=== PATIENT | male | born 1930 | race Caucasian/White ===

== ENCOUNTER 2016-09-04 10:10 | Inpatient (IN) | payer OTHER ==
[~2016-09-04] VITALS: Ht 177.8 cm; Wt 75.0 kg
[~2016-09-04 10:10] MED LIST: AMLO5TAB2 PO; HYT/2 PO; METO25TA3 PO; OMEP20CA59 PO; TAMS0.4C38 PO; VENL150T33 PO; WARF2.5T8 PO; WARF5TAB90 PO
[2016-09-04] MEDS ORDERED: SODIUM CHLORIDE 0.9% 1000ML 1,000 ML IV ONE (10:28)
--- NOTE | 2016-09-04 10:46 | EMERGENCY ROOM VISIT NOTE ---
History Report prepared by Kiranibdre: Radha Disla Under the Supervision of: Dr. Ernie Green D.O. First contact with patient: 10:21 Chief Complaint: URINARY SYMPTOMS Stated Complaint: UTI,CLAMMY,SHALLOW BREATHING,WEAKNESS History of Present Illness The patient is a 85 year old male who presents to the Emergency Room with complaints of persistent urinary symptoms starting 3 days ago. A catheter was placed after he had a stroke in June. 2 days ago, his catheter was taken out. Since then, he has been having urinary retention, urinary incontinence, and pain with urination. His urine was cloudy and orange colored this morning. He had a urine culture when the catheter was taken out which showed infection. He was referred to the Emergency Room today by his urologist for concerns about the infection. As per [id number], the patient has had chills, shallow breathing, increased sleepiness, and weakness. 2 days ago, the patient could ambulate as normal and was coherent. Today, the patient is coherent but he is struggling to talk and ambulate. He denies fevers, headache, chest pain, shortness of breath, back pain, lower extremity pain/swelling, or any other complaints. He has a history of enlarged prostate. He denies any changes in medications or any new medications. The patient is no longer on Coumadin. He is on 81 mg Aspirin. Source of History: patient, family ([id number]) Onset: 3 days ago Position: other (global) Quality: other (urinary symptoms) Timing: other (persistent) Associated Symptoms: + chills, No SOB, No back pain, No chest pain, No fevers, No headache Review of Systems See HPI for pertinent positives & negatives. A total of 10 systems reviewed and were otherwise negative. Past Medical & Surgical Medical Problems: (1) Diabetes mellitus type II, controlled (2) Diastolic CHF (3) Dyslipidemia (4) History of CVA (cerebrovascular accident) (5) HTN (hypertension) (6) Hypothyroidism (7) Kidney stones (8) UTI (urinary tract infection) Surgical Problems: (1) History of cholecystectomy Family History Gallbladder disease Heart disease Hypertension Kidney stones Social History Smoking Status: Former Smoker Alcohol Use: occasionally Marital Status: single Housing Status: lives alone Occupation Status: retired Current/Historical Medications Scheduled Allopurinol (Zyloprim), 300 MG PO DAILY Aspirin (Aspirin Ec), 81 MG PO DAILY Docusate Sodium (Colace), 1 CAP PO BID Fish Oil ([place]-3), 1 CAP PO DAILY Glucosamine Sulfate (Glucosamine), 1 TAB PO DAILY Labetalol Hcl (Normodyne), 50 MG PO TID Levothyroxine Sodium (Synthroid), 112 MCG PO DAILY Lisinopril (Lisinopril), 10 MG PO DAILY Magnesium Oxide (Mag-Ox), 400 MG PO DAILY Ocuvite Preservision (Ocuvite Preservision), 1 TAB PO DAILY Omeprazole (Prilosec), 20 MG PO DAILY Potassium Chloride (Micro-K Ext Rel), 10 MEQ PO DAILY Pravastatin Sod (Pravastatin Sodium), 40 MG PO QPM Senna/Docusate Sod (Senokot S), 1 TAB PO DAILY Tamsulosin Hcl (Flomax), 0.4 MG PO HS Venlafaxine Hcl (Effexor Xr), 1 CAP PO HS Scheduled PRN Acetaminophen (Tylenol), 650 MG PO Q4 PRN for Mild Pain Lorazepam (Ativan), 0.5 MG PO HS PRN for Sleep Allergies Coded Allergies: Tetracycline (Verified Allergy, Intermediate, Rash, 09/04/16) Clonidine (Verified Adverse Reaction, Intermediate, profound hypotension, 09/04/16) Simvastatin (Verified Adverse Reaction, Intermediate, Leg Pains, 09/04/16) Physical Exam Vital Signs Date Time Temp Pulse Resp B/P Pulse Ox O2 Delivery O2 Flow Rate FiO2 09/04/16 12:30 63 22 107/74 94 Nasal Cannula 2.0 09/04/16 10:48 96 Nasal Cannula 2.0 09/04/16 10:44 91 Room Air 09/04/16 10:44 17 92 Nasal Cannula 2.0 09/04/16 10:17 37.0 103 20 123/74 95 Room Air Physical Exam GENERAL: Patient is awake, alert, and in no acute distress. Patient is resting comfortably and showing no signs of anxiety EYES: The conjunctivae are clear. Pupils are constricted bilaterally and minimally reactive to light. EARS, NOSE, MOUTH AND THROAT: The nose is without any evidence of any deformity. Mucous membranes are dry tongue is midline NECK: The neck is nontender and supple. RESPIRATORY: Normal respiratory effort is noted there is no evidence of wheezing rhonchi or rales CARDIOVASCULAR: Regular rate and rhythm noted there no murmurs rubs or gallops normal S1 normal S2 GASTROINTESTINAL: The abdomen is mildly distended but soft. Bowel sounds are present in all quadrants. Abdomen is nontender. There is no specific guarding or rigidity noted. MUSCULOSKELETAL/EXTREMITIES: There is no evidence of gross deformity full range of motion is noted in the hips and shoulders SKIN: There is no obvious evidence of any rash. There are no petechiae, pallor or cyanosis noted. NEUROLOGIC: Patient is awake alert and oriented x3 strength is symmetric Medical Decision & Procedures ER Provider Diagnostic Interpretation: X-ray results as stated below per interpretation by me and the radiologist. CHEST ONE VIEW PORTABLE CLINICAL HISTORY: Sepsis dyspnea COMPARISON STUDY: 08/09/2014 FINDINGS: The bones soft tissues and hemidiaphragms are normal. The cardiomediastinal silhouette is normal. The lungs are clear. The pulmonary vasculature is normal. IMPRESSION: Negative chest. Electronically signed by: Nikunj Medina M.D. 09/04/2016 11:33 AM Dictated Date/Time: 09/04/2016 11:32 AM Laboratory Results Test 09/04/16 10:40 09/04/16 11:02 09/04/16 11:20 09/04/16 11:42 Immature Granulocyte % (Auto) 0.3 % White Blood Count 18.54 K/uL (4.8-10.8) Red Blood Count 4.55 M/uL (4.7-6.1) Hemoglobin 13.5 g/dL (14.0-18.0) Hematocrit 40.6 % (42-52) Mean Corpuscular Volume 89.2 fL (80-100) Mean Corpuscular Hemoglobin 29.7 pg (25-34) Mean Corpuscular Hemoglobin Concent 33.3 g/dl (32-36) Platelet Count 178 K/uL (130-400) Mean Platelet Volume 11.4 fL (7.4-10.4) Neutrophils (%) (Auto) 85.0 % Lymphocytes (%) (Auto) 7.2 % Monocytes (%) (Auto) 7.3 % Eosinophils (%) (Auto) 0.1 % Basophils (%) (Auto) 0.1 % Neutrophils # (Auto) 15.76 K/uL (1.4-6.5) Lymphocytes # (Auto) 1.33 K/uL (1.2-3.4) Monocytes # (Auto) 1.36 K/uL (0.11-0.59) Eosinophils # (Auto) 0.02 K/uL (0-0.5) Basophils # (Auto) 0.02 K/uL (0-0.2) Immature Granulocyte # (Auto) 0.05 K/uL (0.00-0.02) Erythrocyte Sedimentation Rate 33 mm/hr (0-14) Prothrombin Time 12.0 SECONDS (9.0-12.0) Prothromb Time International Ratio 1.1 (0.9-1.1) Activated Partial Thromboplast Time 30.2 SECONDS (21.0-31.0) Partial Thromboplastin Ratio 1.2 Phosphorus Level 3.1 mg/dl (2.5-4.9) Magnesium Level 2.0 mg/dl (1.8-2.4) Total Bilirubin 1.0 mg/dl (0.2-1) Aspartate Amino Transf (AST/SGOT) 16 U/L (15-37) Alanine Aminotransferase (ALT/SGPT) 18 U/L (12-78) Alkaline Phosphatase 89 U/L (45-117) Total Creatine Kinase 25 U/L (39-308) Creatine Kinase MB 0.7 ng/ml (0.5-3.6) Creatine Kinase MB Ratio 2.8 (0-3.0) Troponin I 0.034 ng/ml (0-0.045) C-Reactive Protein 14.20 mg/dl (0-0.29) Pro-B-Type Natriuretic Peptide 993 pg/ml (0-1800) Total Protein 6.8 gm/dl (6.4-8.2) Albumin 2.8 gm/dl (3.4-5.0) Globulin 4.0 gm/dl (2.5-4.0) Albumin/Globulin Ratio 0.7 (0.9-2) Lipase 96 U/L (73-393) Bedside Lactic Acid Venous 1.33 mmol/L (0.90-1.70) Venous Blood pH 7.41 (7.36-7.41) Venous Blood Partial Pressure CO2 45 mmHg (38.0-50.0) Venous Blood Partial Pressure O2 44 mmHg Venous Blood HCO3 28 mmol/L Venous Blood Oxygen Saturation 76.8 % Venous Blood Base Excess 2.3 mmol/L Urine Color DK YELLOW Urine Appearance CLOUDY (CLEAR) Urine pH 5.0 (4.5-7.5) Urine Specific [place] 1.028 (1.000-1.030) Urine Protein 1+ (NEG) Urine Glucose (UA) NEG (NEG) Urine Ketones NEG (NEG) Urine Occult Blood 3+ (NEG) Urine Nitrite POS (NEG) Urine Bilirubin NEG (NEG) Urine Urobilinogen NEG (NEG) Urine Leukocyte Esterase LARGE (NEG) Urine WBC (Auto) >30 /hpf (0-5) Urine RBC (Auto) >30 /hpf (0-4) Urine Hyaline Casts (Auto) 1-5 /lpf (0-5) Urine Epithelial Cells (Auto) 0-5 /lpf (0-5) Urine Bacteria (Auto) 3+ (NEG) Laboratory results per my review. Medications Administered Medications (Trade) Dose Ordered Sig/Shameka Route Start Time Stop Time Status Last Admin Dose Admin Sodium Chloride (Nss 1000ml) 1,000 ml @ 999 mls/hr Q1H1M ONCE IV 09/04/16 10:28 09/04/16 11:28 DC 09/04/16 10:47 999 MLS/HR Levofloxacin (Levaquin / D5W) 750 mg NOW STAT IV 09/04/16 12:25 09/04/16 12:26 DC 09/04/16 12:31 750 MG ECG Indication: weakness Rate (beats per minute): 93 Rhythm: normal sinus Findings: PVC (frequent), other (Diffuse ST segment abnormalities) Comparison ECG Date: May 19, 2016 Change: no significant change ED Course 1021: The patient was evaluated in room C09. A complete history and physical examination were performed. 1028: Sodium Chloride 1000 ml @ 999 mls/hr IV 1225: Levofloxacin 750 mg IV 1232: I spoke with Norma Dickens PA-C of the [employer]. 1240: Upon reevaluation, the patient is resting comfortably. I discussed results and treatment plan with the patient and his family. They verbalize agreement and understanding. The patient will be evaluated for further management and care. Medical Decision Prior records/ancillary studies reviewed and summarized above. Nursing notes reviewed. Additional history obtained from [id number]. Differential diagnosis: Etiologies such as metabolic, infection, hypo/hyperglycemia, electrolyte abnormalities, cardiac sources, intracerebral event, toxicologic, neurologic, as well as others were entertained. The patient is an 85-year-old male who presented to the emergency department for an evaluation of generalized weakness. The patient recently had a stroke and after the stroke he has not been able to urinate without a Hurt[place] catheter. According to his [id number] sounds as though he has problems with urinary retention and overflow incontinence. The patient follow-up with his urologist recently and had the catheter removed but he went back into urinary retention and had a fully catheter placed again. At that time urine culture was obtained. The patient was told to come to the emergency department because of significant infection with a catheter associated urinary tract infection. His daughter-in- law also states that he's been very weak and difficulty ambulate. The patient was treated with IV fluids and IV antibiotics in the emergency department. He was reevaluated multiple times. On subsequent reevaluation he was somewhat improved. Given the patient's comorbidities and significant catheter associated infection I discussed his case with the on-call [facility] hospitalist group. They've agreed to evaluate the patient in the emergency department for further management and disposition. Consults Time Called: 1229 Consulting Physician: Norma Dickens PA-C of the [facility] Group Returned Call: 1232 I spoke with Norma Dickens PA-C of the [facility] Group. Impression Primary Impression: Pyelonephritis Additional Impressions: Catheter-associated urinary tract infection Elevated WBC count Scribe Attestation The scribe's documentation has been prepared under my direction and personally reviewed by me in its entirety. I confirm that the note above accurately reflects all work, treatment, procedures, and medical decision making performed by me. Departure Information Dispostion Being Evaluated By Hospitalist Referrals Brent Coates PA-C (PCP) Patient Instructions My [facility] Problem Qualifiers Additional Impressions: Catheter-associated urinary tract infection Indwelling urinary catheter type: indwelling urethral catheter Encounter type : initial encounter Qualified Codes: T83.511A - Infection and inflammatory reaction due to indwelling urethral catheter, initial encounter; N39.0 - Urinary tract infection, site not specified Elevated WBC count Leukocytosis type: unspecified Qualified Codes: D72.829 - Elevated white blood cell count, unspecified
[2016-09-04 11:16] LABS: BASO % 0.1 %; BASO ABS # 0.02 K/uL (0-0.2); COMPLETE YES; EOS % 0.1 %; HEMATOCRIT 40.6 % (42-52); IG% 0.3 %; LYMPH % 7.2 %; LYMPH ABS # 1.33 K/uL (1.2-3.4); MEAN CELL VOLUME 89.2 fL (80-100); MEAN CORPUSCULAR HEMOGLOBIN 29.7 pg (25-34); MEAN CORPUSCULAR HGB CONC 33.3 g/dl (32-36); MEAN PLATELET VOLUME 11.4 fL (7.4-10.4); MONO % 7.3 %; PLATELET COUNT 178 K/uL (130-400); RED BLOOD COUNT 4.55 M/uL (4.7-6.1); WHITE BLOOD COUNT 18.54 K/uL (4.8-10.8)
[2016-09-04 11:25] LABS: INR 1.1 (0.9-1.1); PARTIAL THROMBOPLASTIN RATIO 1.2
[2016-09-04 11:26] LABS: C-REACTIVE PROTEIN 14.2 mg/dl (0-0.29); CALCIUM 8.3 mg/dl (8.5-10.1); CREATININE 0.96 mg/dl (0.60-1.40); POTASSIUM 3.9 mmol/L (3.5-5.1)
[2016-09-04 11:29] LABS: VEN BLD GAS O2 SATURATION 76.8 %; VEN BLOOD GAS BASE EXCESS 2.3 mmol/L
[2016-09-04 11:33] LABS: ALB/GLOB RATIO 0.7 (0.9-2); CKMB/CK RATIO 2.8 (0-3.0); PHOSPHORUS 3.1 mg/dl (2.5-4.9)
--- NOTE | 2016-09-04 11:34 | DIAGNOSTIC IMAGING REPORT ---
CHEST ONE VIEW PORTABLE CLINICAL HISTORY: Sepsis dyspnea COMPARISON STUDY: 08/09/2014 FINDINGS: The bones soft tissues and hemidiaphragms are normal. The cardiomediastinal silhouette is normal. The lungs are clear. The pulmonary vasculature is normal. IMPRESSION: Negative chest. Electronically signed by: Nikunj Medina M.D. 09/04/2016 11:33 AM Dictated Date/Time: 09/04/2016 11:32 AM
[2016-09-04 11:57] LABS: URINE APPEARANCE CLOUDY (CLEAR); URINE COLOR DK YELLOW; URINE EPITHELIAL CELL AUTO 0-5 /lpf (0-5); URINE NITRITE POS (NEG); URINE SPECIFIC GRAVITY 1.028 (1.000-1.030); UROBILINOGEN NEG (NEG); ZZURINE CULT IF INDIC CATH YES
[2016-09-04 12:09] LABS: MANUAL MICROSCOPIC REQUIRED? NO; REVIEW REQ? NO; URINE BILIRUBIN NEG (NEG)
[2016-09-04] MEDS ORDERED: LEVAQUIN 750MG / 150ML D5W IV STA (12:25)
[2016-09-04] MEDS ORDERED: SENN-65 PO (13:17)
[2016-09-04] MEDS ORDERED: ACETAMINOPHEN 325 MG TAB PO PRN (14:00)
[2016-09-04] MEDS ORDERED: ONDANSETRON INJ 2 MG/ML 2 ML VIAL IV PRN (14:00)
[2016-09-04] MEDS ORDERED: LORAZEPAM 0.5 MG TAB PO PRN (14:00)
[2016-09-04] MEDS ORDERED: SODIUM CHLORIDE 0.9% 1000ML 1,000 ML IV SCH (14:45)
--- NOTE | 2016-09-04 14:45 | History and Physical ---
History & Physical Date & Time of Service: Sep 04, 2016 at 14:07 Chief Complaint: Uti,Clammy,Shallow Breathing,Weakness Primary Care Physician: Brent Coates PA-C History of Present Illness Source: patient This is an 85 y/o male with PMHx of diet controlled DM 2, Diastolic CHF, h/o CVA , HTN, Dyslipidemia and other problems as outlined below who presents to the ED c/o urinary sxs for 3 days. Pt reports that 3 days ago he had his indwelling sweet catheter removed which had been in place since his stroke in July. Since the sweet was removed, patient has had urinary frequency, dysuria and blood in urine. Despite frequency urination there was a concern for incomplete blader emptying and patient's sweet was replaced last night. Per daughter-in- law at bedside, she noticed patient has gotten progressively more weak and tired and he has been taking shallow breaths. Patient received a call from his PCP today that he had a urinary tract infection and family brought him to the ED for further evaluation. 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 He was taken off his Coumadin at that time and only takes a baby ASA daily. Pt currently lives at home with his son and [id number]. He is able to ambulate with assistance but uses a wheelchair when he leaves the house. Pt denies fever/chills, diaphoresis, chest pain, palpitations, SOB, flank pain, abd pain, N/V, bowel issues, LE edema ,calf pain , lightheadedness/dizziness. In the ED, vitals are stable. Pt is afebrile with leukocytosis >18k. UA 3+ bacteria and + nitrites. CXR negative. Pt is stable and will be admitted for further evaluation and treatment. Past Medical/Surgical History Medical Problems: (1) Diabetes mellitus type II, controlled Status: Chronic (2) Diastolic CHF Status: Chronic (3) Dyslipidemia Status: Chronic (4) History of CVA (cerebrovascular accident) Permanent Comment: residual L sided weakness Status: Chronic (5) HTN (hypertension) Status: Chronic (6) Hypothyroidism Status: Chronic (7) Kidney stones Status: Resolved Surgical Problems: (1) History of cholecystectomy Status: Resolved Family History Gallbladder disease Heart disease Hypertension Kidney stones Social History Smoking Status: Former Smoker (50 pack year history; quit 07/2016) Alcohol Use: occasionally Drug Use: none Marital Status: single Housing status: lives with family (son ) Occupational Status: retired Allergies Coded Allergies: Tetracycline (Verified Allergy, Intermediate, Rash, 09/04/16) Clonidine (Verified Adverse Reaction, Intermediate, profound hypotension, 09/04/16) Simvastatin (Verified Adverse Reaction, Intermediate, Leg Pains, 09/04/16) Home Medications Scheduled Allopurinol (Zyloprim), 300 MG PO DAILY Aspirin (Aspirin Ec), 81 MG PO DAILY Docusate Sodium (Colace), 1 CAP PO BID Fish Oil ([place]-3), 1 CAP PO DAILY Glucosamine Sulfate (Glucosamine), 1 TAB PO DAILY Labetalol Hcl (Normodyne), 50 MG PO TID Levothyroxine Sodium (Synthroid), 112 MCG PO DAILY Lisinopril (Lisinopril), 10 MG PO DAILY Magnesium Oxide (Mag-Ox), 400 MG PO DAILY Ocuvite Preservision (Ocuvite Preservision), 1 TAB PO DAILY Omeprazole (Prilosec), 20 MG PO DAILY Potassium Chloride (Micro-K Ext Rel), 10 MEQ PO DAILY Pravastatin Sod (Pravastatin Sodium), 40 MG PO QPM Senna/Docusate Sod (Senokot S), 1 TAB PO DAILY Tamsulosin Hcl (Flomax), 0.4 MG PO HS Venlafaxine Hcl (Effexor Xr), 1 CAP PO HS Scheduled PRN Acetaminophen (Tylenol), 650 MG PO Q4 PRN for Mild Pain Lorazepam (Ativan), 0.5 MG PO HS PRN for Sleep Review of Systems Constitutional: + fatigue, + weakness, No chills, No fever, No sweats Eyes: No worsening of vision ENT: + hearing loss (hearing aids) Respiratory: No cough, No shortness of breath Cardiovascular: No chest pain, No claudication, No edema Abdomen: No constipation, No diarrhea, No nausea, No pain, No vomiting Musculoskeletal: No calf pain, No swelling Genitourinary - Male: + dysuria, + hematuria, + urinary frequency Neurologic: + weakness (chronic L sided weakness) Psychiatric: No depression symptoms Endocrine: No fatigue Hematologic / Lymphatic: No abnormal bleeding/bruising Integumentary: No new/changing skin lesions Physical Exam Vital Signs Date Time Temp Pulse Resp B/P Pulse Ox O2 Delivery O2 Flow Rate FiO2 09/04/16 12:30 63 22 107/74 94 Nasal Cannula 2.0 09/04/16 10:48 96 Nasal Cannula 2.0 09/04/16 10:44 91 Room Air 09/04/16 10:44 17 92 Nasal Cannula 2.0 09/04/16 10:17 37.0 103 20 123/74 95 Room Air General Appearance: WD/WN, no apparent distress, + pertinent finding (Pt is laying in bed with [id number] at bedside ) Head: normocephalic, atraumatic Eyes: normal inspection ENT: hearing grossly normal Neck: supple Respiratory/Chest: chest non-tender, lungs clear, normal breath sounds, no respiratory distress Cardiovascular: regular rate, rhythm, no edema, no murmur Abdomen/GI: normal bowel sounds, non tender, soft Genitourinary - Male: + pertinent finding (sweet in place draining cloudy, orange colored urine ) Back: normal inspection, no CVA tenderness Extremities/Musculoskelatal: normal inspection, no calf tenderness, no pedal edema Neurologic/Psych: alert, normal mood/affect, oriented x 3 Skin: normal color, warm/dry Diagnostics Laboratory Results Results Past 24 Hours Test 09/04/16 10:40 09/04/16 11:02 09/04/16 11:20 09/04/16 11:42 Range/Units White Blood Count 18.54 4.8-10.8 K/uL Red Blood Count 4.55 4.7-6.1 M/uL Hemoglobin 13.5 14.0-18.0 g/dL Hematocrit 40.6 42-52 % Mean Corpuscular Volume 89.2 80-100 fL Mean Corpuscular Hemoglobin 29.7 25-34 pg Mean Corpuscular Hemoglobin Concent 33.3 32-36 g/dl Platelet Count 178 130-400 K/uL Mean Platelet Volume 11.4 7.4-10.4 fL Neutrophils (%) (Auto) 85.0 % Lymphocytes (%) (Auto) 7.2 % Monocytes (%) (Auto) 7.3 % Eosinophils (%) (Auto) 0.1 % Basophils (%) (Auto) 0.1 % Neutrophils # (Auto) 15.76 1.4-6.5 K/uL Lymphocytes # (Auto) 1.33 1.2-3.4 K/uL Monocytes # (Auto) 1.36 0.11-0.59 K/uL Eosinophils # (Auto) 0.02 0-0.5 K/uL Basophils # (Auto) 0.02 0-0.2 K/uL RDW Standard Deviation 52.3 36.4-46.3 fL RDW Coefficient of Variation 16.1 11.5-14.5 % Immature Granulocyte % (Auto) 0.3 % Immature Granulocyte # (Auto) 0.05 0.00-0.02 K/uL Erythrocyte Sedimentation Rate 33 0-14 mm/hr Prothrombin Time 12.0 9.0-12.0 SECONDS Prothromb Time International Ratio 1.1 0.9-1.1 Activated Partial Thromboplast Time 30.2 21.0-31.0 SECONDS Partial Thromboplastin Ratio 1.2 Sodium Level 141 136-145 mmol/L Potassium Level 3.9 3.5-5.1 mmol/L Chloride Level 106 98-107 mmol/L Carbon Dioxide Level 28 21-32 mmol/L Anion Gap 7.0 3-11 mmol/L Blood Urea Nitrogen 19 7-18 mg/dl Creatinine 0.96 0.60-1.40 mg/dl Est Creatinine Clear Calc Drug Dose 57.0 ml/min Estimated GFR () 82.6 Estimated GFR (Non- 71.3 BUN/Creatinine Ratio 20.0 10-20 Random Glucose 133 70-99 mg/dl Calcium Level 8.3 8.5-10.1 mg/dl Phosphorus Level 3.1 2.5-4.9 mg/dl Magnesium Level 2.0 1.8-2.4 mg/dl Total Bilirubin 1.0 0.2-1 mg/dl Aspartate Amino Transf (AST/SGOT) 16 15-37 U/L Alanine Aminotransferase (ALT/SGPT) 18 12-78 U/L Alkaline Phosphatase 89 45-117 U/L Total Creatine Kinase 25 39-308 U/L Creatine Kinase MB 0.7 0.5-3.6 ng/ml Creatine Kinase MB Ratio 2.8 0-3.0 Troponin I 0.034 0-0.045 ng/ml C-Reactive Protein 14.20 0-0.29 mg/dl Pro-B-Type Natriuretic Peptide 993 0-1800 pg/ml Total Protein 6.8 6.4-8.2 gm/dl Albumin 2.8 3.4-5.0 gm/dl Globulin 4.0 2.5-4.0 gm/dl Albumin/Globulin Ratio 0.7 0.9-2 Lipase 96 73-393 U/L Bedside Lactic Acid Venous 1.33 0.90-1.70 mmol/L Venous Blood pH 7.41 7.36-7.41 Venous Blood Partial Pressure CO2 45 38.0-50.0 mmHg Venous Blood Partial Pressure O2 44 mmHg Venous Blood HCO3 28 mmol/L Venous Blood Oxygen Saturation 76.8 % Venous Blood Base Excess 2.3 mmol/L Urine Color DK YELLOW Urine Appearance CLOUDY CLEAR Urine pH 5.0 4.5-7.5 Urine Specific [place] 1.028 1.000-1.030 Urine Protein 1+ NEG Urine Glucose (UA) NEG NEG Urine Ketones NEG NEG Urine Occult Blood 3+ NEG Urine Nitrite POS NEG Urine Bilirubin NEG NEG Urine Urobilinogen NEG NEG Urine Leukocyte Esterase LARGE NEG Urine WBC (Auto) >30 0-5 /hpf Urine RBC (Auto) >30 0-4 /hpf Urine Hyaline Casts (Auto) 1-5 0-5 /lpf Urine Epithelial Cells (Auto) 0-5 0-5 /lpf Urine Bacteria (Auto) 3+ NEG Microbiology Results 09/04/16 Blood Culture, Received Pending 09/04/16 Blood Culture, Received Pending 09/04/16 Urine Culture, Received Pending Diagnostic Radiology CXR IMPRESSION: Negative chest EKG EKG: Sinus rhythm at 93 bpm with PVCs and nonspec ST and T wave abnormality in lateral leads; when compared to EKG from 05/19/16 nonspec T wave abnormality has replaced inverted T waves in lateral leads Impression Assessment and Plan CATHE[employer]OCI[employer] UTI pt presents with urinary sxs for 3 days; sweet cath in place since Jul 12 2016 -admit to med/surg -pt is afebrile with leukocytosis >18k; POC lactic acid 1.33 -UA 3+ bacteria with + nitrites -outpatient prelim urine cx 09/03 + non-lactose fermenting gram neg rods and enterococcus -urine and blood cx-pending -start IV Zosyn -consult urology -pt does not appear septic -monitor DIASTOLIC CHF -no evidence of fluid overload; CXR no effusion/congestion -echo 07/14/16 EF 55-59% with mild mitral regurg -cont ASA and BB -continue to monitor volume status HISTORY OF CVA -ischemic stroke 2010; hemorrhagic stroke Jul 2016 -cont ASA and statin HYPOTHYROIDISM -cont levothyroxine HTN -BP stable -cont lisinopril and labetalol -monitor DYSLIPIDEMIA -cont statin DVT PROPHYLAXIS -SCDs only in setting of recent hemorrhagic stroke CODE STATUS -DNR per discussion with patient upon admission DISPO Pt seen in collaboration with Dr. Knox. Please see his addendum for further details. Thanks! ATTENDING ADDENDUM care coordinated with NYLA Dickens please refer to her notes for full details, I agree with her notes patient seen and examined, records reviewed by myself as well on exam, patient seen resting in bed, comfortable alert, oriented x 3, pleasant denies active abdominal pain, back pain, nausea, chills no chest pain, dyspnea, headache, dizziness, nausea/vomiting no other symptoms VS noted and reviewed oriented x 3 , not in distress, speaks in sentences with no effort nor accessory muscle use normal rate, regular rhythm, no murmurs clear breath sounds bilaterally non distended, soft, nontender, no cva tenderness sweet cath in place, orange cloudy urine no bipedal edema, erythema, warmth no neuro deficits WBC 18k crea 0.96 UA indicative of uti ASSESSMENT/PLAN> 85 year old male with history of hemorrhagic CVA last month, subsequent sweet cath placement, A fib off coumadin, presenting with weakness, positive urine cultures. UTI, GRAM NEGATIVE RODS AND ENTEROCOCCUS in the setting of indwelling sweet catheter based on outpatient Urine culture obtained 09/03/16 as outpatient sensitivities pending will start empiric Zosyn IV ff up blood cultures ff up urine cultures done as outpatient RECENT HEMORRHAGIC CVA admitted to [facility] last Jul 2016 on Aspirin, Statin HISTORY OF A FIB on Labetalol and Aspirin other diagnoses and plan of care as per NYLA Dickens's notes Carlitos Knox MD VTE Prophylaxis VTE Risk Assessment Done? Y/N: Yes Risk Level: Moderate
[2016-09-04] MEDS ORDERED: PIPERACILL/TAZOBAC CONSULT ACTIVE PRN (15:30)
[2016-09-04 16:15] VITALS: BP 118/67; PULSE 93; TEMP 37.1; O2SAT 96; Ht 177.8 cm; Wt 75.0 kg
[2016-09-04] MEDS ORDERED: PIPERACILL/TAZOBAC IV 3.375 GM in DEXTROSE 5% 100ML IV ONE (16:15)
[2016-09-04] MEDS ORDERED: PIPERACILL/TAZOBAC IV 3.375 GM in DEXTROSE 5% 100ML 100 ML IV SCH (18:00)
[2016-09-04] MEDS: TAMSULOSIN HCL 0.4 MG CAP PO SCH (20:00)
[2016-09-04] MEDS: DOCUSATE SODIUM 100 MG CAP PO SCH (20:00)
[2016-09-04] MEDS: PRAVASTATIN SOD 40 MG TAB PO SCH (20:00)
[2016-09-04] MEDS: VENLAFAXINE HCL XR 75 MG CAPXR PO SCH (20:00)
[2016-09-04] MEDS: LABETALOL HCL 100 MG TAB PO SCH (20:01)
[2016-09-04] MEDS: PIPERACILL/TAZOBAC IV 3.375 GM in DEXTROSE 5% 100ML IV SCH (22:04)
[2016-09-05 05:48] LABS: MEAN CELL VOLUME 87.2 fL (80-100); MEAN CORPUSCULAR HEMOGLOBIN 29.2 pg (25-34); MEAN CORPUSCULAR HGB CONC 33.5 g/dl (32-36); MEAN PLATELET VOLUME 10.9 fL (7.4-10.4); PLATELET COUNT 144 K/uL (130-400); WHITE BLOOD COUNT 14.31 K/uL (4.8-10.8)
[2016-09-05] MEDS: PIPERACILL/TAZOBAC IV 3.375 GM in DEXTROSE 5% 100ML IV SCH ×3 (06:01→21:46)
[2016-09-05] MEDS: LEVOTHYROXINE 112 MCG TAB PO SCH (06:01)
[2016-09-05 06:18] LABS: BUN/CREATININE RATIO 20.8 (10-20); CALCIUM 7.7 mg/dl (8.5-10.1); CREATININE 0.77 mg/dl (0.60-1.40); POTASSIUM 3.7 mmol/L (3.5-5.1)
[2016-09-05 07:35] VITALS: BP 127/75; PULSE 81; TEMP 36.9; O2SAT 95
[2016-09-05] MEDS: CEROVITE ADV FORMULA TAB PO SCH (08:38)
[2016-09-05] MEDS: OMEGA-3 (PURIFIED FISH OIL) 1 GM CAP PO SCH (08:38)
[2016-09-05] MEDS: ALLOPURINOL 300 MG TAB PO SCH (08:38)
[2016-09-05] MEDS: MAGNESIUM OXIDE 400 MG TAB PO SCH (08:38)
[2016-09-05] MEDS: DOCUSATE SODIUM 100 MG CAP PO SCH ×2 (08:38→20:03)
[2016-09-05] MEDS: LISINOPRIL 10 MG TAB PO SCH (08:38)
[2016-09-05] MEDS: ASPIRIN 81 MG ECTAB PO SCH (08:38)
[2016-09-05] MEDS: GLUCOSAMINE SULFATE 500 MG CAP PO SCH (08:39)
[2016-09-05] MEDS: PANTOprazole SOD 40 MG TAB PO SCH (08:39)
[2016-09-05] MEDS: POTASSIUM CHLORIDE 10 MEQ TABCR PO SCH (08:39)
[2016-09-05] MEDS: DOCUSATE SODIUM/SENNA 50/8.6MG TAB PO SCH (08:39)
[2016-09-05] MEDS: LABETALOL HCL 100 MG TAB PO SCH ×3 (08:40→20:03)
--- NOTE | 2016-09-05 10:36 | Urology Consultation ---
History General Date of Service: Sep 05, 2016. Chief Complaint: catheter associated uti Primary Care Physician: Brent Coates PA-C Pt seen a urologist before?: Yes History of Present Illness I am asked by Dr Jewell to evaluate and treat patient for uti. He is followed by Dr Camarillo and his PA William. [place] [facility] [place]. He passed a void trial ki this week and then developed urinary incontinence at home. The catheter was replaced 2 days later. He suffered a uti in the interim. The culture from Dr Suarez office showed enterobacter cloacae sensitive to cipro bactrim and cefalosporins. Patient feels mostly recovered already. Laboratory Results Past 24 Hours Test 09/04/16 10:40 09/04/16 11:02 09/04/16 11:20 09/04/16 11:42 Range/Units White Blood Count 18.54 4.8-10.8 K/uL Red Blood Count 4.55 4.7-6.1 M/uL Hemoglobin 13.5 14.0-18.0 g/dL Hematocrit 40.6 42-52 % Mean Corpuscular Volume 89.2 80-100 fL Mean Corpuscular Hemoglobin 29.7 25-34 pg Mean Corpuscular Hemoglobin Concent 33.3 32-36 g/dl Platelet Count 178 130-400 K/uL Mean Platelet Volume 11.4 7.4-10.4 fL Neutrophils (%) (Auto) 85.0 % Lymphocytes (%) (Auto) 7.2 % Monocytes (%) (Auto) 7.3 % Eosinophils (%) (Auto) 0.1 % Basophils (%) (Auto) 0.1 % Neutrophils # (Auto) 15.76 1.4-6.5 K/uL Lymphocytes # (Auto) 1.33 1.2-3.4 K/uL Monocytes # (Auto) 1.36 0.11-0.59 K/uL Eosinophils # (Auto) 0.02 0-0.5 K/uL Basophils # (Auto) 0.02 0-0.2 K/uL RDW Standard Deviation 52.3 36.4-46.3 fL RDW Coefficient of Variation 16.1 11.5-14.5 % Immature Granulocyte % (Auto) 0.3 % Immature Granulocyte # (Auto) 0.05 0.00-0.02 K/uL Erythrocyte Sedimentation Rate 33 0-14 mm/hr Prothrombin Time 12.0 9.0-12.0 SECONDS Prothromb Time International Ratio 1.1 0.9-1.1 Activated Partial Thromboplast Time 30.2 21.0-31.0 SECONDS Partial Thromboplastin Ratio 1.2 Sodium Level 141 136-145 mmol/L Potassium Level 3.9 3.5-5.1 mmol/L Chloride Level 106 98-107 mmol/L Carbon Dioxide Level 28 21-32 mmol/L Anion Gap 7.0 3-11 mmol/L Blood Urea Nitrogen 19 7-18 mg/dl Creatinine 0.96 0.60-1.40 mg/dl Est Creatinine Clear Calc Drug Dose 57.0 ml/min Estimated GFR () 82.6 Estimated GFR (Non- 71.3 BUN/Creatinine Ratio 20.0 10-20 Random Glucose 133 70-99 mg/dl Calcium Level 8.3 8.5-10.1 mg/dl Phosphorus Level 3.1 2.5-4.9 mg/dl Magnesium Level 2.0 1.8-2.4 mg/dl Total Bilirubin 1.0 0.2-1 mg/dl Aspartate Amino Transf (AST/SGOT) 16 15-37 U/L Alanine Aminotransferase (ALT/SGPT) 18 12-78 U/L Alkaline Phosphatase 89 45-117 U/L Total Creatine Kinase 25 39-308 U/L Creatine Kinase MB 0.7 0.5-3.6 ng/ml Creatine Kinase MB Ratio 2.8 0-3.0 Troponin I 0.034 0-0.045 ng/ml C-Reactive Protein 14.20 0-0.29 mg/dl Pro-B-Type Natriuretic Peptide 993 0-1800 pg/ml Total Protein 6.8 6.4-8.2 gm/dl Albumin 2.8 3.4-5.0 gm/dl Globulin 4.0 2.5-4.0 gm/dl Albumin/Globulin Ratio 0.7 0.9-2 Lipase 96 73-393 U/L Bedside Lactic Acid Venous 1.33 0.90-1.70 mmol/L Venous Blood pH 7.41 7.36-7.41 Venous Blood Partial Pressure CO2 45 38.0-50.0 mmHg Venous Blood Partial Pressure O2 44 mmHg Venous Blood HCO3 28 mmol/L Venous Blood Oxygen Saturation 76.8 % Venous Blood Base Excess 2.3 mmol/L Urine Color DK YELLOW Urine Appearance CLOUDY CLEAR Urine pH 5.0 4.5-7.5 Urine Specific [place] 1.028 1.000-1.030 Urine Protein 1+ NEG Urine Glucose (UA) NEG NEG Urine Ketones NEG NEG Urine Occult Blood 3+ NEG Urine Nitrite POS NEG Urine Bilirubin NEG NEG Urine Urobilinogen NEG NEG Urine Leukocyte Esterase LARGE NEG Urine WBC (Auto) >30 0-5 /hpf Urine RBC (Auto) >30 0-4 /hpf Urine Hyaline Casts (Auto) 1-5 0-5 /lpf Urine Epithelial Cells (Auto) 0-5 0-5 /lpf Urine Bacteria (Auto) 3+ NEG Test 09/04/16 20:11 09/05/16 05:20 09/05/16 05:23 Range/Units Bedside Glucose 108 70-99 mg/dl White Blood Count 14.31 4.8-10.8 K/uL Red Blood Count 3.90 4.7-6.1 M/uL Hemoglobin 11.4 14.0-18.0 g/dL Hematocrit 34.0 42-52 % Mean Corpuscular Volume 87.2 80-100 fL Mean Corpuscular Hemoglobin 29.2 25-34 pg Mean Corpuscular Hemoglobin Concent 33.5 32-36 g/dl RDW Standard Deviation 51.1 36.4-46.3 fL RDW Coefficient of Variation 16.0 11.5-14.5 % Platelet Count 144 130-400 K/uL Mean Platelet Volume 10.9 7.4-10.4 fL Sodium Level 143 136-145 mmol/L Potassium Level 3.7 3.5-5.1 mmol/L Chloride Level 110 98-107 mmol/L Carbon Dioxide Level 26 21-32 mmol/L Anion Gap 7.0 3-11 mmol/L Blood Urea Nitrogen 16 7-18 mg/dl Creatinine 0.77 0.60-1.40 mg/dl Est Creatinine Clear Calc Drug Dose 71.1 ml/min Estimated GFR () 95.2 Estimated GFR (Non- 82.2 BUN/Creatinine Ratio 20.8 10-20 Random Glucose 97 70-99 mg/dl Calcium Level 7.7 8.5-10.1 mg/dl Microbiology Results 09/04/16 Blood Culture, Received Pending 09/04/16 Blood Culture, Received Pending 09/04/16 Urine Culture - Preliminary, Resulted Gram Negative Bacilli Gram Negative Bacilli#2 Labs were reviewed and are within normal limits unless listed below. Labs are available in the chart and at [facility] Problem List Medical Problems: (1) Elevated INR Status: Acute (2) Rectal bleeding Status: Acute Past History CVA/TIA/stroke, hypertension, hypothyroidism, kidney stones Past Surgical History: cholecystectomy Family History Gallbladder disease Heart disease Hypertension Kidney stones not relevant at his advanced age Social History Hx Tobacco Use In Past Year?: Yes (quit 07/2016) Marital status: single Housing status: lives with family (son ) Occupation status: retired Allergies Coded Allergies: Tetracycline (Verified Allergy, Intermediate, Rash, 09/04/16) Clonidine (Verified Adverse Reaction, Intermediate, profound hypotension, 09/04/16) Simvastatin (Verified Adverse Reaction, Intermediate, Leg Pains, 09/04/16) Medications Home Medications: Home Meds and Scripts Medications Dose Route/Sig Max Daily Dose Days Date Category Normodyne (Labetalol Hcl) 100 Mg Tab 50 Mg PO TID 09/04/16 Reported Ativan (Lorazepam) 0.5 Mg Tab 0.5 Mg PO HS PRN 09/04/16 Reported Aspirin Ec (Aspirin) 81 Mg Tab 81 Mg PO DAILY 09/04/16 Reported Glucosamine (Glucosamine Sulfate) 1,000 Mg Tab 1 Tab PO DAILY 09/04/16 Reported [place]-3 (Fish Oil) 1 Ea Cap 1 Cap PO DAILY 09/04/16 Reported Effexor Xr (Venlafaxine Hcl) 75 Mg Cap 1 Cap PO HS 30 09/04/16 Reported Senokot S (Senna/Docusate Sodium) 1 Tab Tab 1 Tab PO DAILY 09/04/16 Reported Lisinopril 10 Mg Tab 10 Mg PO DAILY 09/04/16 Reported Colace (Docusate Sodium) 100 Mg Cap 1 Cap PO BID 30 09/04/16 Reported Tylenol (Acetaminophen) 325 Mg Tab 650 Mg PO Q4 PRN 09/04/16 Reported Micro-K Ext Rel (Potassium Chloride) 10 Meq Capcr 10 Meq PO DAILY 05/19/16 Reported Mag-Ox (Magnesium Oxide) 400 Mg Tab 400 Mg PO DAILY 05/19/16 Reported Flomax (Tamsulosin Hcl) 0.4 Mg Cap 0.4 Mg PO HS 08/09/14 Reported Zyloprim (Allopurinol) 300 Mg Tab 300 Mg PO DAILY 08/09/14 Reported Ocuvite Preservision (Multivitamins/Minerals) 1 Tab Tab 1 Tab PO DAILY 08/09/14 Reported Pravastatin Sodium (Pravastatin Sod) 40 Mg Tab 40 Mg PO QPM 08/09/14 Reported Prilosec (Omeprazole) 20 Mg Capcr 20 Mg PO DAILY 08/09/14 Reported Synthroid (Levothyroxine Sodium) 112 Mcg Tab 112 Mcg PO DAILY 08/09/14 Reported Inpatient Medications: Current Inpatient Medications Medications (Trade) Dose Ordered Sig/Shameka Route Start Time Stop Time Status Last Admin Dose Admin Acetaminophen (Tylenol Tab) 650 mg Q4H PRN PO 09/04/16 14:00 10/04/16 13:59 Ondansetron HCl (Zofran Inj) 4 mg Q6H PRN IV 09/04/16 14:00 10/04/16 13:59 Allopurinol (Zyloprim Tab) 300 mg DAILY PO 09/05/16 09:00 10/05/16 08:59 09/05/16 08:38 300 MG Aspirin (Ecotrin Tab) 81 mg DAILY PO 09/05/16 09:00 10/05/16 08:59 09/05/16 08:38 81 MG Docusate Sodium (coLACE CAP) 100 mg BID PO 09/04/16 21:00 10/04/16 20:59 09/05/16 08:38 100 MG Fish Oil ([place]-3 (Purified Fish Oil) Cap) 1 gm DAILY PO 09/05/16 09:00 10/05/16 08:59 09/05/16 08:38 1 GM Labetalol HCl (Normodyne Tab) 50 mg TID PO 09/04/16 21:00 10/04/16 20:59 09/05/16 08:40 50 MG Levothyroxine Sodium (Synthroid Tab) 112 mcg DAILYBB PO 09/05/16 06:30 10/05/16 06:59 09/05/16 06:01 112 MCG Lisinopril (Zestril Tab) 10 mg DAILY PO 09/05/16 09:00 10/05/16 08:59 09/05/16 08:38 10 MG Lorazepam (Ativan Tab) 0.5 mg HS PRN PO 09/04/16 14:00 10/04/16 13:59 Magnesium Oxide (Mag-Ox Tab) 400 mg DAILY PO 09/05/16 09:00 10/05/16 08:59 09/05/16 08:38 400 MG Multivitamins/ Minerals (Multivitamin W/ Minerals Tab) 1 tab DAILY PO 09/05/16 09:00 10/05/16 08:59 09/05/16 08:38 1 TAB Potassium Chloride (Klor-Con M10) 10 meq DAILY PO 09/05/16 09:00 10/05/16 08:59 09/05/16 08:39 10 MEQ Pravastatin Sodium (Pravachol Tab) 40 mg QPM PO 09/04/16 21:00 10/04/16 20:59 09/04/16 20:00 40 MG Senna/Docusate Sodium (Senokot S Tab) 1 tab DAILY PO 09/05/16 09:00 10/05/16 08:59 09/05/16 08:39 1 TAB Tamsulosin HCl (Flomax Cap) 0.4 mg HS PO 09/04/16 21:00 10/04/16 20:59 09/04/16 20:00 0.4 MG Venlafaxine HCl (effeXOR EXTENDED REL CAP) 75 mg HS PO 09/04/16 21:00 10/04/16 20:59 09/04/16 20:00 75 MG Glucosamine Sulfate (Glucosamine Cap) 1,000 mg DAILY PO 09/05/16 09:00 10/05/16 08:59 09/05/16 08:39 1,000 MG Pantoprazole Sodium (Protonix Tab) 40 mg QAM PO 09/05/16 09:00 10/05/16 08:59 09/05/16 08:39 40 MG Piperacillin Sod/ Tazobactam Sod 1 ea 1 ea UD PRN N/A 09/04/16 15:30 10/04/16 15:29 Piperacillin Sod/ Tazobactam Sod/ Dextrose (Zosyn Iv/D5 100ml) 115 ml @ 28.75 mls/ hr Q8H IV 09/04/16 22:00 09/14/16 21:59 09/05/16 06:01 28.75 MLS/HR Review of Systems Review of Systems Constitutional: No chills, No fever Neurological: + dizzy, + problem reported (weakness) Endocrine: + tired/sluggish Gastrointestinal: + abdominal pain Cardiovascular: No chest pain Respiratory: No shortness of breath Male : + frequent urination, + infections, + leaking urine, + nocturia more than once/night, + painful urination Physical Exam Vital Signs: Vital Signs Past 12 Hours Date Time Temp Pulse Resp B/P Pulse Ox O2 Delivery O2 Flow Rate FiO2 09/05/16 07:35 36.9 81 16 127/75 95 Nasal Cannula 1.0 Physical Exam: General Appearance: WD/WN, no apparent distress, + thin Eyes: bilateral eyes normal inspection ENT: hearing grossly normal Respiratory/Chest: no respiratory distress, no accessory muscle use Genitourinary - Male: Penis: normal penis, pertinent finding (sweet in place draining yellow urine no debris no blood) Extremities: normal inspection, no pedal edema, no calf tenderness Neurologic/Psychiatric: alert, normal mood/affect, oriented x 3 Skin: normal color, warm/dry, no rash Assessment & Plan Assessment & Plan urinary retention then overflow incontinence now back with sweet he should keep sweet indefinitely His uti was from his return of retention of urine which was colonized from the supervisor intermediates catheter which was removed earlier this week. keep this antibiotic course short as with the catheter in place he will never clear the bacteriuria. I suggest 5 days only may change to oral meds today and discharge tomorrow if stable he may resume follow up with Dr Camarillo in 3 weeks for his next cath change.
[2016-09-05 16:00] VITALS: BP 106/68; PULSE 71; TEMP 36.7; O2SAT 95
--- NOTE | 2016-09-05 16:59 | Progress Note ---
Internal Med Progress Note Date of Service: Sep 05, 2016. Provider Documentation: SUBJECTIVE: patient says he is feeling better hard to hear denies any pain says his appetite is coming back and ate little today no nausea or sob OBJECTIVE: Vital Signs-as noted below Exam: General-alert and oriented Not in distress. Old and frail ENT-hard of hearing Neck-no neck masses Lungs-cta b/l no wheezing no crackles Heart-s1 and s2 heard regular rate and rhythm no murmurs' Abdomen-soft bowel sounds present non tender no distension Extremities-no edema no erythema Neuro-alert and awake moves extremities Lab data as noted below. ASSESSMENT & PLAN: CATHETER-ASSOCIATED UTI improving on zosyn await final cx plan to keep catheter and follow as out patient with urology for routine cath change continue same DIASTOLIC CHF euvolemic. ASA and BB will monitor volume status HISTORY OF CVA ischemic stroke 2010; hemorrhagic stroke Jul 2016 on ASA and statin stable HYPOTHYROIDISM -cont levothyroxine HTN on lisinopril and labetalol will monitor DYSLIPIDEMIA on statin DVT PROPHYLAXIS SCDs only in setting of recent hemorrhagic stroke DISPOSITION to be determined pt/ot Vital Signs: Date Time Temp Pulse Resp B/P Pulse Ox O2 Delivery O2 Flow Rate FiO2 09/05/16 08:00 Room Air 09/05/16 07:35 36.9 81 16 127/75 95 Nasal Cannula 1.0 09/04/16 19:50 Nasal Cannula 1.0 Lab Results: Results Past 24 Hours Test 09/04/16 20:11 09/05/16 05:20 09/05/16 05:23 Range/Units Bedside Glucose 108 70-99 mg/dl White Blood Count 14.31 4.8-10.8 K/uL Red Blood Count 3.90 4.7-6.1 M/uL Hemoglobin 11.4 14.0-18.0 g/dL Hematocrit 34.0 42-52 % Mean Corpuscular Volume 87.2 80-100 fL Mean Corpuscular Hemoglobin 29.2 25-34 pg Mean Corpuscular Hemoglobin Concent 33.5 32-36 g/dl RDW Standard Deviation 51.1 36.4-46.3 fL RDW Coefficient of Variation 16.0 11.5-14.5 % Platelet Count 144 130-400 K/uL Mean Platelet Volume 10.9 7.4-10.4 fL Sodium Level 143 136-145 mmol/L Potassium Level 3.7 3.5-5.1 mmol/L Chloride Level 110 98-107 mmol/L Carbon Dioxide Level 26 21-32 mmol/L Anion Gap 7.0 3-11 mmol/L Blood Urea Nitrogen 16 7-18 mg/dl Creatinine 0.77 0.60-1.40 mg/dl Est Creatinine Clear Calc Drug Dose 71.1 ml/min Estimated GFR () 95.2 Estimated GFR (Non- 82.2 BUN/Creatinine Ratio 20.8 10-20 Random Glucose 97 70-99 mg/dl Calcium Level 7.7 8.5-10.1 mg/dl
[2016-09-05 19:55] VITALS: BP 107/71; PULSE 65; TEMP 36.8; O2SAT 94
[2016-09-05] MEDS: TAMSULOSIN HCL 0.4 MG CAP PO SCH (20:03)
[2016-09-05] MEDS: PRAVASTATIN SOD 40 MG TAB PO SCH (20:03)
[2016-09-05] MEDS: VENLAFAXINE HCL XR 75 MG CAPXR PO SCH (20:03)
[2016-09-05 23:57] VITALS: BP 122/72; PULSE 71; TEMP 36.9; O2SAT 95
[2016-09-06] MEDS: PIPERACILL/TAZOBAC IV 3.375 GM in DEXTROSE 5% 100ML IV SCH (05:27)
[2016-09-06] MEDS: LEVOTHYROXINE 112 MCG TAB PO SCH (05:28)
[2016-09-06 07:10] VITALS: BP 147/89; PULSE 72; TEMP 36.7; O2SAT 94
[2016-09-06] MEDS: CEROVITE ADV FORMULA TAB PO SCH (08:11)
[2016-09-06] MEDS: POTASSIUM CHLORIDE 10 MEQ TABCR PO SCH (08:11)
[2016-09-06] MEDS: ALLOPURINOL 300 MG TAB PO SCH (08:11)
[2016-09-06] MEDS: ASPIRIN 81 MG ECTAB PO SCH (08:11)
[2016-09-06] MEDS: LISINOPRIL 10 MG TAB PO SCH (08:11)
[2016-09-06] MEDS: OMEGA-3 (PURIFIED FISH OIL) 1 GM CAP PO SCH (08:11)
[2016-09-06] MEDS: PANTOprazole SOD 40 MG TAB PO SCH (08:11)
[2016-09-06] MEDS: DOCUSATE SODIUM 100 MG CAP PO SCH ×2 (08:11→21:00)
[2016-09-06] MEDS: GLUCOSAMINE SULFATE 500 MG CAP PO SCH (08:12)
[2016-09-06] MEDS: DOCUSATE SODIUM/SENNA 50/8.6MG TAB PO SCH (08:12)
[2016-09-06] MEDS: LABETALOL HCL 100 MG TAB PO SCH ×3 (08:12→21:16)
[2016-09-06] MEDS: MAGNESIUM OXIDE 400 MG TAB PO SCH (08:12)
[2016-09-06 08:27] LABS: BASO % 0.3 %; BASO ABS # 0.02 K/uL (0-0.2); COMPLETE YES; EOS % 1.3 %; HEMATOCRIT 38.1 % (42-52); IG% 0.1 %; LYMPH % 18.6 %; LYMPH ABS # 1.47 K/uL (1.2-3.4); MEAN CELL VOLUME 87.4 fL (80-100); MEAN CORPUSCULAR HEMOGLOBIN 28.9 pg (25-34); MEAN CORPUSCULAR HGB CONC 33.1 g/dl (32-36); MEAN PLATELET VOLUME 10.8 fL (7.4-10.4); MONO % 6.8 %; NEUT % 72.9 %; PLATELET COUNT 171 K/uL (130-400); RED BLOOD COUNT 4.36 M/uL (4.7-6.1); WHITE BLOOD COUNT 7.92 K/uL (4.8-10.8)
[2016-09-06 08:49] LABS: BUN/CREATININE RATIO 19.7 (10-20); CALCIUM 8.3 mg/dl (8.5-10.1); CREATININE 0.86 mg/dl (0.60-1.40); POTASSIUM 3.8 mmol/L (3.5-5.1)
[2016-09-06 10:46] VITALS: BP 128/76; PULSE 65; TEMP 36.4; O2SAT 97
[2016-09-06] MEDS ORDERED: PNEUMOCOCCAL POLYSACCHARIDES 25 MCG/0.5 ML VIAL/SYR IM. ONE (14:00)
[2016-09-06] MEDS ORDERED: PNEUMOCOCCAL ADMINISTRATION CHARGE ONE (14:00)
[2016-09-06 15:01] VITALS: BP 120/82; PULSE 69; TEMP 37; O2SAT 96
--- NOTE | 2016-09-06 17:50 | Progress Note ---
Internal Med Progress Note Date of Service: Sep 06, 2016. Provider Documentation: SUBJECTIVE: patient is feeling better eating ok ambulating with help want to go home as soon as possible OBJECTIVE: Vital Signs-as noted below Exam: General-alert and oriented Not in distress. Old and frail ENT-hard of hearing Neck-no neck masses Lungs-cta b/l no wheezing no crackles Heart-s1 and s2 heard regular rate and rhythm no murmurs' Abdomen-soft bowel sounds present non tender no distension Extremities-no edema no erythema Neuro-alert and awake moves extremities Lab data as noted below. ASSESSMENT & PLAN: CATHETER-ASSOCIATED UTI improving on zosyn await final cx plan to keep catheter and follow as out patient with urology for routine cath change growing pseudomonas and Enterobacter changed abx to cipro. DIASTOLIC CHF euvolemic. ASA and BB will monitor volume status stable HISTORY OF CVA ischemic stroke 2010; hemorrhagic stroke Jul 2016 on ASA and statin stable HYPOTHYROIDISM -cont levothyroxine HTN on lisinopril and labetalol will monitor DYSLIPIDEMIA on statin DVT PROPHYLAXIS SCDs only in setting of recent hemorrhagic stroke DISPOSITION possible d/c in am pt/ot social service for d/c planning Vital Signs: Date Time Temp Pulse Resp B/P Pulse Ox O2 Delivery O2 Flow Rate FiO2 09/06/16 15:01 37.0 69 16 120/82 96 Room Air 09/06/16 10:46 36.4 65 16 128/76 97 Room Air 09/06/16 08:00 Room Air 09/06/16 07:10 36.7 72 16 147/89 94 Room Air 09/05/16 23:57 36.9 71 18 122/72 95 Nasal Cannula 2.0 09/05/16 23:49 Room Air 09/05/16 19:55 36.8 65 16 107/71 94 Room Air 09/05/16 19:37 Room Air Lab Results: Results Past 24 Hours Test 09/06/16 08:13 Range/Units White Blood Count 7.92 4.8-10.8 K/uL Red Blood Count 4.36 4.7-6.1 M/uL Hemoglobin 12.6 14.0-18.0 g/dL Hematocrit 38.1 42-52 % Mean Corpuscular Volume 87.4 80-100 fL Mean Corpuscular Hemoglobin 28.9 25-34 pg Mean Corpuscular Hemoglobin Concent 33.1 32-36 g/dl Platelet Count 171 130-400 K/uL Mean Platelet Volume 10.8 7.4-10.4 fL Neutrophils (%) (Auto) 72.9 % Lymphocytes (%) (Auto) 18.6 % Monocytes (%) (Auto) 6.8 % Eosinophils (%) (Auto) 1.3 % Basophils (%) (Auto) 0.3 % Neutrophils # (Auto) 5.78 1.4-6.5 K/uL Lymphocytes # (Auto) 1.47 1.2-3.4 K/uL Monocytes # (Auto) 0.54 0.11-0.59 K/uL Eosinophils # (Auto) 0.10 0-0.5 K/uL Basophils # (Auto) 0.02 0-0.2 K/uL RDW Standard Deviation 51.2 36.4-46.3 fL RDW Coefficient of Variation 16.0 11.5-14.5 % Immature Granulocyte % (Auto) 0.1 % Immature Granulocyte # (Auto) 0.01 0.00-0.02 K/uL Sodium Level 143 136-145 mmol/L Potassium Level 3.8 3.5-5.1 mmol/L Chloride Level 108 98-107 mmol/L Carbon Dioxide Level 27 21-32 mmol/L Anion Gap 8.0 3-11 mmol/L Blood Urea Nitrogen 17 7-18 mg/dl Creatinine 0.86 0.60-1.40 mg/dl Est Creatinine Clear Calc Drug Dose 63.7 ml/min Estimated GFR () 91.0 Estimated GFR (Non- 78.5 BUN/Creatinine Ratio 19.7 10-20 Random Glucose 117 70-99 mg/dl Calcium Level 8.3 8.5-10.1 mg/dl
[2016-09-06 20:32] VITALS: BP 135/81; PULSE 62; TEMP 36.7; O2SAT 93
[2016-09-06] MEDS: VENLAFAXINE HCL XR 75 MG CAPXR PO SCH (21:15)
[2016-09-06] MEDS: TAMSULOSIN HCL 0.4 MG CAP PO SCH (21:15)
[2016-09-06] MEDS: PRAVASTATIN SOD 40 MG TAB PO SCH (21:15)
[2016-09-06 23:51] VITALS: BP 138/83; PULSE 65; TEMP 36.6; O2SAT 95
[2016-09-07] MEDS: LEVOTHYROXINE 112 MCG TAB PO SCH (05:51)
[2016-09-07 07:53] VITALS: BP 132/77; PULSE 69; TEMP 36.9; O2SAT 90
[2016-09-07] MEDS: ALLOPURINOL 300 MG TAB PO SCH (08:26)
[2016-09-07] MEDS: ASPIRIN 81 MG ECTAB PO SCH (08:27)
[2016-09-07] MEDS: CEROVITE ADV FORMULA TAB PO SCH (08:27)
[2016-09-07] MEDS: DOCUSATE SODIUM/SENNA 50/8.6MG TAB PO SCH (08:27)
[2016-09-07] MEDS: LABETALOL HCL 100 MG TAB PO SCH ×2 (08:27→14:48)
[2016-09-07] MEDS: MAGNESIUM OXIDE 400 MG TAB PO SCH (08:28)
[2016-09-07] MEDS: LISINOPRIL 10 MG TAB PO SCH (08:28)
[2016-09-07] MEDS: OMEGA-3 (PURIFIED FISH OIL) 1 GM CAP PO SCH (08:28)
[2016-09-07] MEDS: GLUCOSAMINE SULFATE 500 MG CAP PO SCH (08:28)
[2016-09-07] MEDS: PANTOprazole SOD 40 MG TAB PO SCH (08:28)
[2016-09-07] MEDS: DOCUSATE SODIUM 100 MG CAP PO SCH (08:29)
[2016-09-07] MEDS: POTASSIUM CHLORIDE 10 MEQ TABCR PO SCH (08:29)
[2016-09-07] MEDS ORDERED: CIPROFLOXACIN 500 MG TAB PO STA (10:27)
[2016-09-07] MEDS ORDERED: LCTX PO (11:31)
[2016-09-07] MEDS ORDERED: CPR500 PO (11:31)
--- NOTE | 2016-09-07 11:34 | Discharge Instructions ---
Discharge Instructions Date of Service Sep 07, 2016. Admission Reason for Admission: UTI Discharge Discharge Diagnosis / Problem: COMPLICATED UTI Discharge Goals Goal(s): Decrease discomfort, Improve function Activity Recommendations Activity Limitations: resume your previous activity . Instructions / Follow-Up Instructions / Follow-Up FOLLOWUP WITH FAMILY DOCTOR Brent Coates PA-C ON September AT 11:10PM. FOLLOWUP WITH UROLOGY SCHEDULED. CONTINUE OUT PATIENT PHYSICAL THERAPY Current Hospital Diet Patient's current hospital diet: Diabetes Type 2 Diet Discharge Diet Recommended Diet: AHA Diet (Heart Healthy) Pending Studies Studies pending at discharge: no Medical Emergencies . Who to Call and When: Medical Emergencies: If at any time you feel your situation is an emergency, please call 911 immediately. . Non-Emergent Contact Non-Emergency issues call your: Primary Care Provider . . "Provider Documentation" section prepared by Donald Jewell. VTE Core Measure Inpt VTE Proph given/why not?: SCD's
[2016-09-07 11:53] VITALS: BP 132/77; PULSE 69; TEMP 36.9; O2SAT 90
--- NOTE | 2016-09-07 19:30 | Progress Note ---
Internal Med Progress Note Date of Service: Sep 07, 2016. Provider Documentation: SUBJECTIVE: patient is feeling better afebrile want to go home OBJECTIVE: Vital Signs-as noted below Exam: General-alert and oriented Not in distress. Old and frail ENT-hard of hearing Neck-no neck masses Lungs-cta b/l no wheezing no crackles Heart-s1 and s2 heard regular rate and rhythm no murmurs' Abdomen-soft bowel sounds present non tender no distension Extremities-no edema no erythema Neuro-alert and awake moves extremities Lab data as noted below. ASSESSMENT & PLAN: CATHETER-ASSOCIATED UTI improving on zosyn await final cx plan to keep catheter and follow as out patient with urology for routine cath change growing pseudomonas and Enterobacter changed abx to cipro. f/u with urology DIASTOLIC CHF euvolemic. ASA and BB will monitor volume status stable HISTORY OF CVA ischemic stroke 2010; hemorrhagic stroke Jul 2016 on ASA and statin stable HYPOTHYROIDISM -cont levothyroxine HTN on lisinopril and labetalol will monitor DYSLIPIDEMIA on statin discharged home Vital Signs: Date Time Temp Pulse Resp B/P Pulse Ox O2 Delivery O2 Flow Rate FiO2 09/07/16 11:53 36.9 69 17 90 Room Air 09/07/16 08:00 Room Air 09/07/16 07:53 36.9 69 17 132/77 90 Room Air 09/06/16 23:51 36.6 65 20 138/83 95 Room Air 09/06/16 23:28 Room Air 09/06/16 20:32 36.7 62 18 135/81 93 Room Air 09/06/16 19:58 Room Air
--- NOTE | 2016-09-07 19:38 | Discharge Summary ---
Discharge Summary Date of Service Sep 07, 2016. Discharge Summary Admission Date: Sep 04, 2016 at 13:56 Discharge Date: Sep 07, 2016 Discharge Disposition: Home with services Principal Diagnosis: COMPLICATED UTI Secondary Diagnoses/Problems: 1) Diabetes mellitus type II, controlled Status: Chronic (2) Diastolic CHF Status: Chronic (3) Dyslipidemia Status: Chronic (4) History of CVA (cerebrovascular accident) Permanent Comment: residual L sided weakness Status: Chronic (5) HTN (hypertension) Status: Chronic (6) Hypothyroidism Status: Chronic (7) Kidney stones Status: Resolved Procedures: CHEST XRAY: Negative chest. Consultations: UROLOGY Medication Reconciliation New Medications: Lactobacillus Acidophilus (Lactinex) Tab 2 TAB PO BID for 14 Days, TAB Ciprofloxacin (Ciprofloxacin HCl) 500 Mg Tab 500 MG PO BID for 12 Days, #24 TAB Continued Medications: Acetaminophen (Tylenol) 325 Mg Tab 650 MG PO Q4 PRN for Mild Pain, TAB Allopurinol (Zyloprim) 300 Mg Tab 300 MG PO DAILY, TAB Aspirin (Aspirin Ec) 81 Mg Tab 81 MG PO DAILY Docusate Sodium (Colace) 100 Mg Cap 1 CAP PO BID for 30 Days, #60 CAP Fish Oil ([place]-3) 1 Ea Cap 1 CAP PO DAILY, CAP Glucosamine Sulfate (Glucosamine) 1,000 Mg Tab 1 TAB PO DAILY, TAB Labetalol Hcl (Normodyne) 100 Mg Tab 50 MG PO TID, TAB Levothyroxine Sodium (Synthroid) 112 Mcg Tab 112 MCG PO DAILY, TAB Lisinopril (Lisinopril) 10 Mg Tab 10 MG PO DAILY Lorazepam (Ativan) 0.5 Mg Tab 0.5 MG PO HS PRN for Sleep, TAB Magnesium Oxide (Mag-Ox) 400 Mg Tab 400 MG PO DAILY, TAB Ocuvite Preservision (Ocuvite Preservision) 1 Tab Tab 1 TAB PO DAILY Omeprazole (Prilosec) 20 Mg Capcr 20 MG PO DAILY, CAP Potassium Chloride (Micro-K Ext Rel) 10 Meq Capcr 10 MEQ PO DAILY, CAP Pravastatin Sod (Pravastatin Sodium) 40 Mg Tab 40 MG PO QPM Senna/Docusate Sod (Senokot S) 1 Tab Tab 1 TAB PO DAILY, TAB Tamsulosin Hcl (Flomax) 0.4 Mg Cap 0.4 MG PO HS Venlafaxine Hcl (Effexor Xr) 75 Mg Cap 1 CAP PO HS for 30 Days, CAP Admission Information HPI (per Admitting provider): This is an 85 y/o male with PMHx of diet controlled DM 2, Diastolic CHF, h/o CVA , HTN, Dyslipidemia and other problems as outlined below who presents to the ED c/o urinary sxs for 3 days. Pt reports that 3 days ago he had his indwelling sweet catheter removed which had been in place since his stroke in July. Since the sweet was removed, patient has had urinary frequency, dysuria and blood in urine. Despite frequency urination there was a concern for incomplete blader emptying and patient's sweet was replaced last night. Per daughter-in- law at bedside, she noticed patient has gotten progressively more weak and tired and he has been taking shallow breaths. Patient received a call from his PCP today that he had a urinary tract infection and family brought him to the ED for further evaluation. 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 He was taken off his Coumadin at that time and only takes a baby ASA daily. Pt currently lives at home with his son and [id number]. He is able to ambulate with assistance but uses a wheelchair when he leaves the house. Pt denies fever/chills, diaphoresis, chest pain, palpitations, SOB, flank pain, abd pain, N/V, bowel issues, LE edema ,calf pain , lightheadedness/dizziness. In the ED, vitals are stable. Pt is afebrile with leukocytosis >18k. UA 3+ bacteria and + nitrites. CXR negative. Pt is stable and will be admitted for further evaluation and treatment. Physical Exam (per Admitting): General Appearance: WD/WN, no apparent distress, + pertinent finding (Pt is laying in bed with [id number] at bedside ) Head: normocephalic, atraumatic Eyes: normal inspection ENT: hearing grossly normal Neck: supple Respiratory/Chest: chest non-tender, lungs clear, normal breath sounds, no respiratory distress Cardiovascular: regular rate, rhythm, no edema, no murmur Abdomen/GI: normal bowel sounds, non tender, soft Genitourinary - Male: + pertinent finding (sweet in place draining cloudy, orange colored urine ) Back: normal inspection, no CVA tenderness Extremities/Musculoskelatal: normal inspection, no calf tenderness, no pedal edema Neurologic/Psych: alert, normal mood/affect, oriented x 3 Skin: normal color, warm/dry Hospital Course CATHETER-ASSOCIATED UTI improving on zosyn await final cx plan to keep catheter and follow as out patient with urology for routine cath change growing pseudomonas and Enterobacter changed abx to cipro. f/u with urology DIASTOLIC CHF euvolemic. ASA and BB will monitor volume status stable HISTORY OF CVA ischemic stroke 2010; hemorrhagic stroke Jul 2016 on ASA and statin stable HYPOTHYROIDISM -cont levothyroxine HTN on lisinopril and labetalol will monitor DYSLIPIDEMIA on statin discharged home Total time spent on discharge = 35 MINUTES This includes examination of the patient, discharge planning, medication reconciliation, and communication with other providers. Discharge Instructions Discharge Instructions Date of Service Sep 07, 2016. Admission Reason for Admission: UTI Discharge Discharge Diagnosis / Problem: COMPLICATED UTI Discharge Goals Goal(s): Decrease discomfort, Improve function Activity Recommendations Activity Limitations: resume your previous activity . Instructions / Follow-Up Instructions / Follow-Up FOLLOWUP WITH FAMILY DOCTOR Brent Coates PA-C ON September AT 11:10PM. FOLLOWUP WITH UROLOGY SCHEDULED. CONTINUE OUT PATIENT PHYSICAL THERAPY Current Hospital Diet Patient's current hospital diet: Diabetes Type 2 Diet Discharge Diet Recommended Diet: AHA Diet (Heart Healthy) Pending Studies Studies pending at discharge: no Medical Emergencies . Who to Call and When: Medical Emergencies: If at any time you feel your situation is an emergency, please call 911 immediately. . Non-Emergent Contact Non-Emergency issues call your: Primary Care Provider . . "Provider Documentation" section prepared by Donald Jewell. VTE Core Measure Inpt VTE Proph given/why not?: SCD's
[2016-09-07] MEDS ORDERED: CIPROFLOXACIN 500 MG TAB PO SCH (21:00)
[2016-10-26] MEDS ORDERED: POTA10CA28 PO (11:11)
[2016-10-26] MEDS ORDERED: MAGN400T6 PO (11:11)
[2016-10-26] MEDS ORDERED: ASPI81TA28 PO (13:17)
[2016-10-26] MEDS ORDERED: ACET-1311 PO (13:17)
[2016-10-26] MEDS ORDERED: LORA-741 PO (13:17)
[2016-10-26] MEDS ORDERED: VENL75CA PO (13:17)
[2016-10-26] MEDS ORDERED: DOCU-94 PO (13:17)
[2016-10-26] MEDS ORDERED: LISI-461 PO (13:17)
[2016-10-26] MEDS ORDERED: GLUC10007 PO (13:17)
[2016-10-26] MEDS ORDERED: OMEG10007 PO (13:17)
[2016-10-26] MEDS ORDERED: LBT/100 PO (14:00)
== END 2016-09-07 14:49 | disposition home or self-care (01) | DRG 699 ==
LOC: ENRESERVTM → ENRESERVDT → C.EDB 10:12 → C.MED 13:56
PROVIDERS: ADMIT Internal Medicine; ATTEND Internal Medicine
DX: T83.518A Infection and inflammatory reaction due to other urinary catheter, initial encounter (principal); N39.0 Urinary tract infection, site not specified; I50.30 Unspecified diastolic (congestive) heart failure; I69.254 Hemiplegia and hemiparesis following other nontraumatic intracranial hemorrhage affecting left non-dominant side; Y73.2 Prosthetic and other implants, materials and accessory gastroenterology and urology devices associated with adverse incidents; B96.5 Pseudomonas (aeruginosa) (mallei) (pseudomallei) as the cause of diseases classified elsewhere; B96.89 Other specified bacterial agents as the cause of diseases classified elsewhere; R33.9 Retention of urine, unspecified; N39.490 Overflow incontinence; E11.9 Type 2 diabetes mellitus without complications; I11.0 Hypertensive heart disease with heart failure; I48.91 Unspecified atrial fibrillation; E78.5 Hyperlipidemia, unspecified; E03.9 Hypothyroidism, unspecified; Z66 Do not resuscitate; Z96.0 Presence of urogenital implants; Z87.891 Personal history of nicotine dependence; Z79.82 Long term (current) use of aspirin; Z79.899 Other long term (current) drug therapy

== ENCOUNTER 2016-10-26 15:25 | Emergency (ER) | payer OTHER ==
[~2016-10-26] VITALS: Ht 177.8 cm; Wt 75.0 kg
[~2016-10-26 15:25] MED LIST changes: +ACET-1311 PO; -AMLO5TAB2 PO; +ASPI81TA28 PO; +CPR500 PO; +DOCU-94 PO; +GLUC10007 PO; -HYT/2 PO; +LBT/100 PO; +LISI-461 PO; +LORA-741 PO; +MAGN400T6 PO; -METO25TA3 PO; +OMEG10007 PO; +POTA10CA28 PO; +SENN-65 PO; -VENL150T33 PO; +VENL75CA PO; -WARF2.5T8 PO; -WARF5TAB90 PO
[2016-10-26 15:28] VITALS: TEMP 36.5; Ht 177.8 cm; Wt 75.0 kg
[2016-10-26] MEDS ORDERED: METO25TA56 PO (16:24)
[2016-10-26] MEDS ORDERED: CIPR-255 PO (16:24)
[2016-10-26 16:30] LABS: BASO % 0.3 %; BASO ABS # 0.03 K/uL (0-0.2); COMPLETE YES; HEMATOCRIT 43.4 % (42-52); IG% 0.2 %; LYMPH % 22.4 %; LYMPH ABS # 2.08 K/uL (1.2-3.4); MEAN CELL VOLUME 91.4 fL (80-100); MEAN CORPUSCULAR HEMOGLOBIN 30.3 pg (25-34); MEAN CORPUSCULAR HGB CONC 33.2 g/dl (32-36); MEAN PLATELET VOLUME 11.7 fL (7.4-10.4); MONO % 8.6 %; NEUT % 67.5 %; PLATELET COUNT 146 K/uL (130-400); RED BLOOD COUNT 4.75 M/uL (4.7-6.1); WHITE BLOOD COUNT 9.29 K/uL (4.8-10.8)
[2016-10-26] MEDS ORDERED: ALLO300T2 PO (16:33)
[2016-10-26] MEDS ORDERED: PRVC/40 PO (16:33)
[2016-10-26] MEDS ORDERED: MULT-190 PO (16:33)
[2016-10-26] MEDS ORDERED: LEVO112T2 PO (16:33)
[2016-10-26 16:46] LABS: BUN/CREATININE RATIO 18.7 (10-20); CALCIUM 8.7 mg/dl (8.5-10.1); CREATININE 0.93 mg/dl (0.60-1.40); POTASSIUM 4.3 mmol/L (3.5-5.1)
[2016-10-26 16:54] LABS: URINE APPEARANCE TURBID (CLEAR); URINE BILIRUBIN NEG (NEG); URINE COLOR YELLOW; URINE EPITHELIAL CELL AUTO 0-5 /lpf (0-5); URINE NITRITE POS (NEG); URINE SPECIFIC GRAVITY 1.014 (1.000-1.030); UROBILINOGEN NEG (NEG); ZZURINE CULT IF INDIC CATH YES
[2016-10-26 16:55] LABS: MANUAL MICROSCOPIC REQUIRED? NO; REVIEW REQ? NO
--- NOTE | 2016-10-26 16:58 | DIAGNOSTIC IMAGING REPORT ---
HEAD CT NONCONTRAST CT DOSE: 537.48 mGy.cm HISTORY: Trauma fall TECHNIQUE: Multiaxial CT images of the head were performed without the use of intravenous contrast. Comparison: None. Findings: The paranasal sinuses and mastoid air cells are clear. Age-related atrophy and chronic small vessel change. Calcification of basal ganglia. Calcification of an old right external capsule infarct. No evidence for acute intracranial hemorrhage. Several small old periventricular infarct. Impression: Chronic and age-related change. No acute process. Electronically signed by: Nikunj Medina M.D. 10/26/2016 4:56 PM Dictated Date/Time: 10/26/2016 4:55 PM
[2016-10-26] MEDS ORDERED: LEVOFLOXACIN 250 MG TAB PO ONE (17:00)
[2016-10-26 17:27] VITALS: BP 104/72; PULSE 84; O2SAT 94
[2016-10-26] MEDS ORDERED: LEVO-366 PO (17:33)
--- NOTE | 2016-10-26 22:10 | EMERGENCY ROOM VISIT NOTE ---
History Report prepared by Gisele: Holly Sanchez Under the Supervision of: Dr. Nick Mccray D.O. First contact with patient: 15:58 Chief Complaint: URINARY SYMPTOMS Stated Complaint: PAIN-URINARY [id number] @ CATH SITE Nursing Triage Summary: Pt has chronic catheter. Pt reports he was awake all night with pain and it didn't drain anything until this morning. Daughter reports the urine looks normal and there is drainage coming rom around his penis. History of Present Illness The patient is an 85 year old male who presents to the Emergency Room with complaints of intermittent penis pain starting BARKER PEELER. The pain is at the tip of his penis and he rates his discomfort as a 10/10 at worst. He describes his pain as burning. His pain does not improve when he changes position. He had a UTI 5 weeks ago and thinks that he might have another UTI. He has a catheter in place after a stroke left him unable to void. He has the catheter changed monthly. The last change was 4 weeks ago. From yesterday night to 0600 this morning, he had no urine output. This morning from [id number] the bag filled up. He has not had any clogs before. He reports some urine leaking around the catheter. He denies any fever, abdominal pain, chest pain, SOB, nausea, vomiting , diarrhea, or testicular pain. His daughter in law reports that the patient has been more confused lately. He fell 4 days ago and hit his head on the bed. His last UTI grew out 2 types of pseudomonas and enterococcus which are all susceptible to Levaquin. Source of History: patient, family Onset: BARKER PEELER Position: other (tip of penis) Symptom Intensity: 10/10 at worst Quality: burning Timing: intermittent Associated Symptoms: No SOB, No abdominal pain, No chest pain, No diarrhea, No fevers, No nausea, No vomiting Note: Pt reports catheter leaking. Pt denies testicular pain. Review of Systems See HPI for pertinent positives & negatives. A total of 10 systems reviewed and were otherwise negative. Past Medical & Surgical Medical Problems: (1) Diabetes mellitus type II, controlled (2) Diastolic CHF (3) Dyslipidemia (4) History of CVA (cerebrovascular accident) (5) HTN (hypertension) (6) Hypothyroidism (7) Kidney stones (8) UTI (urinary tract infection) Surgical Problems: (1) History of cholecystectomy Family History Gallbladder disease Heart disease Hypertension Kidney stones Social History Smoking Status: Current Every Day Smoker Alcohol Use: occasionally Drug Use: none Marital Status: single Housing Status: lives with family Occupation Status: retired Current/Historical Medications Scheduled Allopurinol (Zyloprim), 300 MG PO DAILY Aspirin (Aspirin Ec), 81 MG PO DAILY Ciprofloxacin Hcl (Cipro), 500 MG PO Q12 Docusate Sodium (Colace), 1 CAP PO BID Fish Oil ([place]-3), 1 CAP PO DAILY Glucosamine Sulfate (Glucosamine), 1 TAB PO DAILY Labetalol Hcl (Normodyne), 50 MG PO TID Levofloxacin (Levaquin), 500 MG PO DAILY Levothyroxine Sodium (Synthroid), 112 MCG PO DAILY Lisinopril (Lisinopril), 10 MG PO DAILY Magnesium Oxide (Mag-Ox), 400 MG PO DAILY Metoprolol Tartrate (Lopressor) (Lopressor), 12.5 MG PO DAILY Ocuvite Preservision (Ocuvite Preservision), 1 TAB PO DAILY Omeprazole (Prilosec), 20 MG PO DAILY Potassium Chloride (Micro-K Ext Rel), 10 MEQ PO DAILY Pravastatin Sod (Pravastatin Sodium), 40 MG PO QPM Tamsulosin Hcl (Flomax), 0.4 MG PO HS Venlafaxine Hcl (Effexor Xr), 1 CAP PO HS Scheduled PRN Acetaminophen (Tylenol), 650 MG PO Q4 PRN for Mild Pain Lorazepam (Ativan), 0.5 MG PO Q6H PRN for Sleep Allergies Coded Allergies: Tetracycline (Verified Allergy, Intermediate, Rash, 09/04/16) Clonidine (Verified Adverse Reaction, Intermediate, profound hypotension, 09/04/16) Simvastatin (Verified Adverse Reaction, Intermediate, Leg Pains, 09/04/16) Physical Exam Vital Signs Date Time Temp Pulse Resp B/P Pulse Ox O2 Delivery O2 Flow Rate FiO2 10/26/16 17:27 84 18 104/72 94 Room Air 10/26/16 15:28 36.5 81 18 102/67 95 Room Air Physical Exam GENERAL: sitting up in bed, disheveled, no acute distress HEAD: normocephalic, atraumatic EYE EXAM: normal conjunctiva, PERRL and EOM's grossly intact OROPHARYNX: no exudate, no erythema, lips, buccal mucosa, and tongue normal and mucous membranes are moist NECK: supple, no nuchal rigidity, no adenopathy, non-tender LUNGS: Clear to auscultation. Normal chest wall mechanics HEART: no murmurs, S1 normal and S2 normal ABDOMEN: abdomen soft, non-tender, normo-active bowel sounds, no masses, no rebound or guarding. BACK: Back is symmetrical on inspection and there is no deformity, no midline tenderness, no CVA tenderness. : normal external genitalia with Hurtado catheter in place, testicles nontender. SKIN: no rashes and no bruising UPPER EXTREMITIES: upper extremities are grossly normal. LOWER EXTREMITIES: No pitting edema. NEURO EXAM: Normal sensorium, cranial nerves II-XII intact, normal speech, deficit of the left upper extremity which is chronic from stroke, able to ambulate with slightly staggered gait. Medical Decision & Procedures ER Provider Diagnostic Interpretation: Radiology results as stated below per my review and the radiologist's interpretation: HEAD CT NONCONTRAST CT DOSE: 537.48 mGy.cm HISTORY: Trauma fall TECHNIQUE: Multiaxial CT images of the head were performed without the use of intravenous contrast. Comparison: None. Findings: The paranasal sinuses and mastoid air cells are clear. Age-related atrophy and chronic small vessel change. Calcification of basal ganglia. Calcification of an old right external capsule infarct. No evidence for acute intracranial hemorrhage. Several small old periventricular infarct. Impression: Chronic and age-related change. No acute process. Electronically signed by: Nikunj Medina M.D. 10/26/2016 4:56 PM Dictated Date/Time: 10/26/2016 4:55 PM Laboratory Results 10/26/16 16:20 Red Blood Count 4.75, Mean Corpuscular Volume 91.4, Mean Corpuscular Hemoglobin 30.3, Mean Corpuscular Hemoglobin Concent 33.2, Mean Platelet Volume 11.7, Neutrophils (%) (Auto) 67.5, Lymphocytes (%) (Auto) 22.4, Monocytes (%) (Auto) 8.6, Eosinophils (%) (Auto) 1.0, Basophils (%) (Auto) 0.3, Neutrophils # (Auto) 6.27, Lymphocytes # (Auto) 2.08, Monocytes # (Auto) 0.80, Eosinophils # (Auto) 0.09, Basophils # (Auto) 0.03 10/26/16 16:20 Test 10/26/16 16:20 10/26/16 16:30 White Blood Count 9.29 K/uL (4.8-10.8) Red Blood Count 4.75 M/uL (4.7-6.1) Hemoglobin 14.4 g/dL (14.0-18.0) Hematocrit 43.4 % (42-52) Mean Corpuscular Volume 91.4 fL (80-100) Mean Corpuscular Hemoglobin 30.3 pg (25-34) Mean Corpuscular Hemoglobin Concent 33.2 g/dl (32-36) Platelet Count 146 K/uL (130-400) Mean Platelet Volume 11.7 fL (7.4-10.4) Neutrophils (%) (Auto) 67.5 % Lymphocytes (%) (Auto) 22.4 % Monocytes (%) (Auto) 8.6 % Eosinophils (%) (Auto) 1.0 % Basophils (%) (Auto) 0.3 % Neutrophils # (Auto) 6.27 K/uL (1.4-6.5) Lymphocytes # (Auto) 2.08 K/uL (1.2-3.4) Monocytes # (Auto) 0.80 K/uL (0.11-0.59) Eosinophils # (Auto) 0.09 K/uL (0-0.5) Basophils # (Auto) 0.03 K/uL (0-0.2) RDW Standard Deviation 56.9 fL (36.4-46.3) RDW Coefficient of Variation 16.9 % (11.5-14.5) Immature Granulocyte % (Auto) 0.2 % Immature Granulocyte # (Auto) 0.02 K/uL (0.00-0.02) Anion Gap 6.0 mmol/L (3-11) Est Creatinine Clear Calc Drug Dose 58.9 ml/min Estimated GFR () 85.9 Estimated GFR (Non- 74.1 BUN/Creatinine Ratio 18.7 (10-20) Calcium Level 8.7 mg/dl (8.5-10.1) Total Bilirubin 0.4 mg/dl (0.2-1) Direct Bilirubin 0.1 mg/dl (0-0.2) Aspartate Amino Transf (AST/SGOT) 15 U/L (15-37) Alanine Aminotransferase (ALT/SGPT) 18 U/L (12-78) Alkaline Phosphatase 102 U/L (45-117) Total Protein 7.0 gm/dl (6.4-8.2) Albumin 3.6 gm/dl (3.4-5.0) Lipase 195 U/L (73-393) Urine Color YELLOW Urine Appearance TURBID (CLEAR) Urine pH 6.0 (4.5-7.5) Urine Specific [place] 1.014 (1.000-1.030) Urine Protein 1+ (NEG) Urine Glucose (UA) NEG (NEG) Urine Ketones NEG (NEG) Urine Occult Blood 3+ (NEG) Urine Nitrite POS (NEG) Urine Bilirubin NEG (NEG) Urine Urobilinogen NEG (NEG) Urine Leukocyte Esterase LARGE (NEG) Urine WBC (Auto) >30 /hpf (0-5) Urine RBC (Auto) >30 /hpf (0-4) Urine Hyaline Casts (Auto) 1-5 /lpf (0-5) Urine Epithelial Cells (Auto) 0-5 /lpf (0-5) Urine Bacteria (Auto) 2+ (NEG) Laboratory results per my review. Medications Administered Medications (Trade) Dose Ordered Sig/Shameka Route Start Time Stop Time Status Last Admin Dose Admin Levofloxacin (Levaquin Tab) 500 mg NOW ONCE PO 10/26/16 17:00 10/26/16 17:01 DC 10/26/16 17:25 500 MG ED Course ED COURSE: Vital signs were reviewed and showed normal vitals. The patients medical record was reviewed The above diagnostic studies were performed and reviewed. ED treatments and interventions as stated above. 1603: The patient was evaluated in room C9. A complete history and physical examination was performed. 1700: Levofloxacin 500 mg PO. 1729: Upon reevaluation, the patient is resting comfortably. After the Hurtado was inserted, a clot was removed and greater than 300 mL of urine was drained. I discussed my findings with the patient and his family and they understand and agree with the treatment plan. Based on the patients age, coexisting illnesses, exam and lab findings the decision to treat as an outpatient was made. The patient remained stable while under my care. The patient appeared well at the time of discharge. Medical Decision Differential diagnoses includes but is not limited to gastritis, peptic ulcer disease, GERD, gallbladder disease, pancreatitis, small bowel obstruction, acute coronary syndrome, pericarditis, ischemic bowel, irritable bowel disease, irritable bowel syndrome, appendicitis, diverticulitis, malignancy, hernia, urinary tract infection, torsion, perforation, trauma, infectious. Patient is an 85-year-old male who presents the ER for pain at the tip of his penis. He has no other complaints. He does have a chronic indwelling Hurtado which was placed earlier this year as a result of a stroke and urinary retention. Vitals are unremarkable. He has no significant leukocytosis. BMP along with LFTs, bilirubin and lipase was unremarkable. UA shows leukocytes, white cells, bacteria and nitrates. Previous review of cultures shows 2 separate pseudomonas and enterococcus which were all susceptible to Levaquin. Patient is otherwise well-appearing and in his baseline. We did replace his Hurtado and got just over 300 and bowels out along with a clot. I do favor he had some urinary retention secondary to a clogged catheter and he was significantly improved and discharged follow-up with his primary care doctor and urologist this Wednesday. Discussed with Pt concerning signs and symptoms to watch out for. Pt was instructed to follow up with their PCP and discussed with the patient their option to return to the ED at anytime for persistent or worsening symptoms. The appropriate anticipatory guidance and out-patient management, including indications for return to the emergency department, were explained at length to the patient and understood. Impression Primary Impression: UTI (urinary tract infection) Additional Impression: Obstructed Hurtado catheter Scribe Attestation The scribe's documentation has been prepared under my direction and personally reviewed by me in its entirety. I confirm that the note above accurately reflects all work, treatment, procedures, and medical decision making performed by me. Departure Information Dispostion Home / Self-Care Prescriptions Levofloxacin (Levaquin) 500 Mg Tab 500 MG PO DAILY for 9 Days, TAB Prov: Nick Mccray, DO 10/26/16 Referrals No Doctor, Assigned (PCP) Brent Coates PA-C Forms HOME CARE DOCUMENTATION FORM, IMPORTANT VISIT INFORMATION Patient Instructions My [facility], UTI Additional Instructions Please follow up with your primary care doctor with in the next 24 hours. Any worsening of your symptoms, please return to the ED immediately. This includes fevers greater than 100.4, confusion, passing out, worsening or new pain, or any other concerning signs or symptoms from your standpoint. Please follow up with urology on this coming Wednesday. Problem Qualifiers Primary Impression: UTI (urinary tract infection) Urinary tract infection type: catheter-associated UTI Indwelling urinary catheter type: indwelling urethral catheter Encounter type: initial encounter Qualified Codes: T83.511A - Infection and inflammatory reaction due to indwelling urethral catheter, initial encounter; N39.0 - Urinary tract infection, site not specified Additional Impression: Obstructed Hurtado catheter Encounter type: initial encounter Qualified Codes: T83.091A - Other mechanical complication of indwelling urethral catheter, initial encounter
== END 2016-10-26 17:43 | disposition home or self-care (01) ==
LOC: C.EDB 15:27 → C.EDC 17:43
DX: N39.0 Urinary tract infection, site not specified (principal); T83.091A Other mechanical complication of indwelling urethral catheter, initial encounter; X58.XXXA Exposure to other specified factors, initial encounter; E11.9 Type 2 diabetes mellitus without complications; I50.30 Unspecified diastolic (congestive) heart failure; E78.5 Hyperlipidemia, unspecified; Z86.73 Personal history of transient ischemic attack (TIA), and cerebral infarction without residual deficits; I10 Essential (primary) hypertension; E03.9 Hypothyroidism, unspecified; Z82.49 Family history of ischemic heart disease and other diseases of the circulatory system; F17.200 Nicotine dependence, unspecified, uncomplicated; Z79.82 Long term (current) use of aspirin

== ENCOUNTER → 2017-08-20 | Outpatient (CLI) | payer OTHER ==
[~2017-08-20] MED LIST changes: +ALLO300T2 PO; +CIPR-255 PO; -CPR500 PO; +LEVO112T2 PO; +METO25TA56 PO; +MULT-190 PO; +PRVC/40 PO; -SENN-65 PO
== END | disposition home or self-care (01) ==
LOC: C.LABMFLN 10:20
PROVIDERS: ATTEND Family Medicine
DX: R82.90 Unspecified abnormal findings in urine (principal)

== ENCOUNTER → 2017-08-31 | Outpatient (CLI) | payer OTHER | END | disposition home or self-care (01) | LOC: C.LABMFLN 13:49 | PROVIDERS: ATTEND Family Medicine | DX: R82.90 Unspecified abnormal findings in urine (principal) ==

== ENCOUNTER → 2017-09-06 | Outpatient (CLI) | payer OTHER | END | disposition home or self-care (01) | LOC: C.LABMFLN 16:36 | PROVIDERS: ATTEND Family Medicine | DX: R82.90 Unspecified abnormal findings in urine (principal) ==

== ENCOUNTER → 2017-10-01 | Outpatient (CLI) | payer OTHER | END | disposition home or self-care (01) | LOC: C.LABMFLN 12:29 | PROVIDERS: ATTEND Family Medicine | DX: R82.90 Unspecified abnormal findings in urine (principal) ==

== ENCOUNTER → 2017-10-21 | Outpatient (CLI) | payer OTHER | END | disposition home or self-care (01) | LOC: C.LABMFLN 08:38 | PROVIDERS: ATTEND Family Medicine | DX: R82.90 Unspecified abnormal findings in urine (principal) ==

== ENCOUNTER → 2018-01-25 | Outpatient (CLI) | payer OTHER ==
[~2018-01-25] MED LIST changes: -VENL75CA PO; +VENL75CA88 PO
[2018-01-25 13:13] LABS: BASO % 0.6 %; BASO ABS # 0.04 K/uL (0-0.2); EOS % 1.3 %; EOS ABS # 0.09 K/uL (0-0.5); HEMATOCRIT 43.8 % (42-52); HEMOGLOBIN 14.3 g/dL (14.0-18.0); IG# 0.02 K/uL (0.00-0.02); LYMPH % 25.8 %; LYMPH ABS # 1.74 K/uL (1.2-3.4); MEAN CELL VOLUME 93.6 fL (80-100); MEAN CORPUSCULAR HEMOGLOBIN 30.6 pg (25-34); MEAN CORPUSCULAR HGB CONC 32.6 g/dl (32-36); MEAN PLATELET VOLUME 12.8 fL (7.4-10.4); MONO % 7.9 %; MONO ABS # 0.53 K/uL (0.11-0.59); NEUT % 64.1 %; NEUT ABS # 4.32 K/uL (1.4-6.5); PLATELET COUNT 121 K/uL (130-400); RED CELL DISTRIBUTION WIDTH CV 15.2 % (11.5-14.5); RED CELL DISTRIBUTION WIDTH SD 52.3 fL (36.4-46.3); WHITE BLOOD COUNT 6.74 K/uL (4.8-10.8)
[2018-01-25 13:51] LABS: ALBUMIN 3.2 gm/dl (3.4-5.0); ALKALINE PHOSPHATASE 71 U/L (45-117); ALT/SGPT 21 U/L (12-78); AST/SGOT 17 U/L (15-37); BLOOD UREA NITROGEN 16 mg/dl (7-18); CALCIUM 8.1 mg/dl (8.5-10.1); CARBON DIOXIDE 28 mmol/L (21-32); CHOLESTEROL 125 mg/dl (0-200); CREATININE 1.06 mg/dl (0.60-1.40); GLUCOSE 132 mg/dl (70-99); LDL CHOLESTEROL CALCULATED 64 mg/dl; SODIUM 141 mmol/L (136-145); TOTAL PROTEIN 6.6 gm/dl (6.4-8.2); URIC ACID 4.8 mg/dl (2.6-7.2)
== END | disposition home or self-care (01) ==
LOC: C.LABMFLN 09:49
PROVIDERS: ATTEND Family Medicine
DX: M10.9 Gout, unspecified (principal); E78.5 Hyperlipidemia, unspecified; I69.359 Hemiplegia and hemiparesis following cerebral infarction affecting unspecified side; E03.9 Hypothyroidism, unspecified